=== PATIENT | female | born 1965 | race Caucasian/White ===

== ENCOUNTER 2017-05-20 08:06 | Emergency (ER) | payer MEDICARE ==
[2017-05-20 08:07] VITALS: BMI 35.2
[2017-05-20 08:25] VITALS: RESP 16; TEMP 98.7; O2SAT 98
--- NOTE | 2017-05-20 08:38 | ED PDOC ---
Arrival/HPI - General Chief Complaint: Trauma Time Seen by Provider: 05/20/17 08:26 Historian: Patient - History of Present Illness Narrative History of Present Illness (Text): 05/20/17 08:25 Skye Wilkerson is a 51 year old female, whose past medical history includes hypertension, who presents to the emergency department complaining of musculoskeletal pain s/p mechanical fall since yesterday. Patient reports she was shoveling snow when she fell and notes the pain is mainly on right hand, right ankle, left shoulder, and left knee. Patient did no hit her head or lose consciousness. Patient denies other complaints. Time/Duration: 24 hours Symptom Onset: Sudden Symptom Course: Unchanged Activities at Onset: Light Past Medical History - Provider Review Nursing Documentation Reviewed: Yes - Infectious Disease Hx of Infectious Diseases: None - Tetanus Immunization Tetanus Immunization: Unknown - Reproductive Menopause: Yes - Cardiac Hx Hypertension: Yes - Pulmonary Hx Respiratory Disorders: No - Neurological Hx Neurological Disorder: Yes Other/Comment: anxiety - HEENT Hx HEENT Disorder: Yes Other/Comment: wears glasses - Renal Hx Renal Disorder: No - Endocrine/Metabolic Hx Endocrine Disorders: No Hx Diabetes Mellitus Type 1: No Hx Diabetes Mellitus Type 2: No - Hematological/Oncological Hx Blood Disorders: No - Integumentary Hx Dermatological Disorder: No - Musculoskeletal/Rheumatological Hx Musculoskeletal Disorders: No Hx Falls: No - Gastrointestinal Hx Gastrointestinal Disorders: Yes Other/Comment: elevated liver enzymes - Genitourinary/Gynecological Hx Genitourinary Disorders: Yes Other/Comment: hysterectomy 2010 - Psychiatric Hx Psychophysiologic Disorder: Yes Hx Anxiety: Yes Hx Depression: Yes Hx Panic Disorder: Yes Hx Substance Use: No - Past Surgical History Past Surgical History: No Previous - Surgical History Hx Hysterectomy: Yes - Anesthesia Hx Anesthesia: Yes Hx Anesthesia Reactions: No Hx Malignant Hyperthermia: No - Suicidal Assessment Feels Threatened In Home Enviroment: No Family/Social History - Physician Review Nursing Documentation Reviewed: Yes Family/Social History: Unknown Family HX Smoking Status: Light Smoker < 10 Cigarettes Daily Hx Alcohol Use: No Hx Substance Use: No Hx Substance Use Treatment: No Allergies/Home Meds Allergies/Adverse Reactions: Allergies aspirin Allergy (Verified 05/20/17 08:25) RASH Penicillins Allergy (Verified 05/20/17 08:25) RASH Home Medications: Home Meds Medication Instructions Recorded Confirmed Atomoxetine HCl [Strattera] 80 mg PO DAILY 10/27/11 11/07/13 Benztropine [Cogentin] 1 mg PO HS 10/27/11 11/07/13 Calcium Carbonate/Vitamin D 1 tab PO DAILY 10/27/11 11/07/13 [Caltrate 600 + D 600 mg-200 Iu] Fenofibrate, Micronized 134 mg PO DAILY 10/27/11 11/07/13 [Fenofibrate Micronized] Nortriptyline Hydrochloride 75 mg PO DAILY 10/27/11 11/07/13 [Nortriptyline] Risperidone 4 mg PO HS 10/27/11 11/07/13 Zolpidem Tartrate [Ambien] 10 mg PO HS 10/27/11 11/07/13 Amlodipine/Valsartan [Exforge 1 tab PO HS 07/21/12 11/07/13 5-160 mg Tablet] Multivitamin and Minerals1 1 tab PO DAILY 07/21/12 11/07/13 [Centrum] Naproxen [Naproxen Delayed-Release] 500 mg PO HS 07/21/12 11/07/13 Lorazepam 1 mg PO TID 01/21/13 11/07/13 Review of Systems - Review of Systems Constitutional: absent: Fevers Respiratory: absent: SOB Cardiovascular: absent: Chest Pain Gastrointestinal: absent: Abdominal Pain, Vomiting Genitourinary Female: absent: Dysuria Musculoskeletal: Other (right hand, right ankle, left knee, left shoulder ) Neurological: absent: Headache Hemo/Lymphatic: absent: Easy Bruising Physical Exam Vital Signs Reviewed: Yes Vital Signs Temp Pulse Resp BP Pulse Ox 05/20/17 10:07 72 16 122/82 98 05/20/17 08:07 98.7 F 74 16 121/74 98 Temperature: Afebrile Blood Pressure: Normal Pulse: Regular Respiratory Rate: Normal Appearance: Positive for: Well-Appearing, Non-Toxic, Comfortable Pain Distress: None Mental Status: Positive for: Alert and Oriented X 3 - Systems Exam Head: Present: Atraumatic, Normocephalic Pupils: Present: PERRL Extroacular Muscles: Present: EOMI Conjunctiva: Present: Normal Respiratory/Chest: Present: Clear to Auscultation, Good Air Exchange. No: Respiratory Distress, Accessory Muscle Use Cardiovascular: Present: Regular Rate and Rhythm, Normal S1, S2. No: Murmurs Abdomen: Present: Normal Bowel Sounds. No: Tenderness, Distention, Peritoneal Signs, Rebound, Guarding Upper Extremity: Present: Normal Inspection, Normal ROM, NORMAL PULSES, Tenderness (mild tenderness on right hand, left shoulder ), Capillary Refill < 2s. No: Cyanosis, Edema, Deformity Lower Extremity: Present: Normal Inspection, NORMAL PULSES, Tenderness (mild tenderness on right ankle, left knee), Neurovascularly Intact, Capillary Refill < 2 s. No: Edema, Deformity Neurological: Present: GCS=15, CN II-XII Intact, Speech Normal Skin: Present: Warm, Dry, Normal Color. No: Rashes Psychiatric: Present: Alert, Oriented x 3, Normal Insight, Normal Concentration Medical Decision Making ED Course and Treatment: 05/20/17 10:00 Right Ankle x-ray: Creator : Morales Byrd MD FINDINGS: BONES: Normal. No fracture. JOINTS: Normal. No osteoarthritis. Ankle mortise maintained. Talar dome intact SOFT TISSUES: Normal. OTHER FINDINGS: None. IMPRESSION: No acute findings related to/accounting for the clinical presentation. 05/20/17 10:15 Right Hand x-ray: Creator : Ned Osullivan MD FINDINGS: BONES: Normal. No fracture. JOINTS: Normal. No osteoarthritic changes. SOFT TISSUES: Normal. OTHER FINDINGS: None. IMPRESSION: Normal right hand radiographs. 05/20/17 10:15 Left Knee x-ray: Creator : Ned Osullivan MD FINDINGS: BONES: Normal. No fracture. JOINTS: Normal. No osteoarthritis. JOINT EFFUSION: None. OTHER FINDINGS: None. IMPRESSION: Normal radiographs of the left knee. 05/20/17 10:20 Left shoulder x-ray: Creator : Ned Osullivan MD FINDINGS: BONES: Normal. No fracture. JOINTS: Normal. Glenohumeral and acromioclavicular joints preserved. No osteoarthritis. SOFT TISSUES: Normal. OTHER FINDINGS: None. IMPRESSION: Normal radiographs of the left shoulder. - RAD Interpretation Radiology Orders: 05/20/17 08:28 ANKLE RIGHT 3 VIEWS ROUTINE [RAD] Stat HAND RIGHT 3 VIEWS [RAD] Stat KNEE LEFT 2 VIEWS (AP & LAT) [RAD] Stat SHOULDER LEFT [RAD] Stat Act Tutor: Radiologist - Medication Orders Current Medication Orders: Discontinued Medications Acetaminophen (Tylenol 325mg Tab) 975 mg PO STAT STA Stop: 05/20/17 08:30 Last Admin: 05/20/17 08:30 Dose: 975 mg MAR Pain/Vitals Document 05/20/17 08:30 AD (Rec: 05/20/17 09:09 AD [id number]) Pain Reassessment Is This A Pain ReAssessment? No Presence of Pain Presence of Pain Yes Pain Scale Used Pain Scale Used Numeric Location Intensity 6 Scale Used Numeric - Scribe Statement The provider has reviewed the documentation as recorded by the Marylouibrajni Navarrete Provider Scribe Attestation: All medical record entries made by the Scribe were at my direction and personally dictated by me. I have reviewed the chart and agree that the record accurately reflects my personal performance of the history, physical exam, medical decision making, and the department course for this patient. I have also personally directed, reviewed, and agree with the discharge instructions and disposition. Disposition/Present on Arrival - Present on Arrival Any Indicators Present on Arrival: No History of DVT/PE: No History of Uncontrolled Diabetes: No Urinary Catheter: No History of Decub. Ulcer: No History Surgical Site Infection Following: None - Disposition Have Diagnosis and Disposition been Completed?: Yes Diagnosis: Shoulder strain, Ankle sprain, Hand sprain, Knee sprain Disposition: HOME/ ROUTINE Disposition Time: 10:00 Condition: STABLE Discharge Instructions (ExitCare): Ankle Sprain (ED), Knee Sprain (ED), Shoulder Sprain (ED), Hand Sprain (ED) Additional Instructions: see specialist. return to emergency room with worsening symptoms or concerns. Referrals: Germán Epstein MD [Primary Care Provider] - Follow up with primary Ned Caldwell DO [Staff Provider] - Follow up with primary Forms: [employer] (Turkish)
--- NOTE | 2017-05-20 09:55 | RAD ---
PROCEDURE: Right Ankle Radiographs. HISTORY: fall COMPARISON: None FINDINGS: BONES: Normal. No fracture. JOINTS: Normal. No osteoarthritis. Ankle mortise maintained. Talar dome intact SOFT TISSUES: Normal. OTHER FINDINGS: None. IMPRESSION: No acute findings related to/accounting for the clinical presentation.
--- NOTE | 2017-05-20 10:13 | RAD ---
PROCEDURE: Left Knee Radiographs. HISTORY: Pain. COMPARISON: None. FINDINGS: BONES: Normal. No fracture. JOINTS: Normal. No osteoarthritis. JOINT EFFUSION: None. OTHER FINDINGS: None. IMPRESSION: Normal radiographs of the left knee.
[2017-05-20 10:14] VITALS: BP 122/82; PULSE 72
--- NOTE | 2017-05-20 10:14 | RAD ---
PROCEDURE: Radiographs of the Left Shoulder HISTORY: fall COMPARISON: No prior. FINDINGS: BONES: Normal. No fracture. JOINTS: Normal. Glenohumeral and acromioclavicular joints preserved. No osteoarthritis. SOFT TISSUES: Normal. OTHER FINDINGS: None. IMPRESSION: Normal radiographs of the left shoulder.
--- NOTE | 2017-05-20 10:15 | RAD ---
PROCEDURE: Right Hand Radiographs. HISTORY: fall COMPARISON: None. FINDINGS: BONES: Normal. No fracture. JOINTS: Normal. No osteoarthritic changes. SOFT TISSUES: Normal. OTHER FINDINGS: None. IMPRESSION: Normal right hand radiographs.
== END 2017-05-20 10:15 | disposition home or self-care (01) ==
LOC: ED 08:06
DX: S46.912A Strain of unspecified muscle, fascia and tendon at shoulder and upper arm level, left arm, initial encounter (principal); S96.911A Strain of unspecified muscle and tendon at ankle and foot level, right foot, initial encounter; S66.911A Strain of unspecified muscle, fascia and tendon at wrist and hand level, right hand, initial encounter; S86.812A Strain of other muscle(s) and tendon(s) at lower leg level, left leg, initial encounter; W18.30XA Fall on same level, unspecified, initial encounter; Y93.H1 Activity, digging, shoveling and raking; I10 Essential (primary) hypertension; F17.210 Nicotine dependence, cigarettes, uncomplicated; Z88.0 Allergy status to penicillin

== ENCOUNTER 2017-08-27 10:07 | Emergency (ER) | payer MEDICARE ==
[2017-08-27 10:07] VITALS: BMI 35.2
[2017-08-27 10:23] VITALS: TEMP 98.3
--- NOTE | 2017-08-27 10:37 | ED PDOC ---
Arrival/HPI - General Chief Complaint: Abdominal Pain Time Seen by Provider: 08/27/17 10:29 Historian: Patient - History of Present Illness Narrative History of Present Illness (Text): 08/27/17 10:30 51yo female with PMHx of hypertension and HCL who present with complaint of RLQ abdominal pain x few days. She denies any current pain. States she came in because she is worried about appendicitis. She denies nausea, vomiting, diarrhea , constipation, fever, chills, urinary symptoms, chest pain, SOB, dizziness, any other complaint. Past Medical History - Provider Review Nursing Documentation Reviewed: Yes - Infectious Disease Hx of Infectious Diseases: None - Tetanus Immunization Tetanus Immunization: Unknown - Reproductive Menopause: Yes - Cardiac Hx Hypertension: Yes - Pulmonary Hx Respiratory Disorders: No - Neurological Hx Neurological Disorder: Yes Other/Comment: anxiety - HEENT Hx HEENT Disorder: Yes Other/Comment: wears glasses - Renal Hx Renal Disorder: No - Endocrine/Metabolic Hx Endocrine Disorders: No Hx Diabetes Mellitus Type 1: No Hx Diabetes Mellitus Type 2: No - Hematological/Oncological Hx Blood Disorders: No - Integumentary Hx Dermatological Disorder: No - Musculoskeletal/Rheumatological Hx Musculoskeletal Disorders: No Hx Falls: No - Gastrointestinal Hx Gastrointestinal Disorders: Yes Other/Comment: elevated liver enzymes - Genitourinary/Gynecological Hx Genitourinary Disorders: Yes Other/Comment: hysterectomy 2009 - Psychiatric Hx Psychophysiologic Disorder: Yes Hx Anxiety: Yes Hx Depression: Yes Hx Panic Disorder: Yes Hx Substance Use: No - Past Surgical History Past Surgical History: No Previous - Surgical History Hx Hysterectomy: Yes - Anesthesia Hx Anesthesia: Yes Hx Anesthesia Reactions: No Hx Malignant Hyperthermia: No - Suicidal Assessment Feels Threatened In Home Enviroment: No Family/Social History - Physician Review Nursing Documentation Reviewed: Yes Family/Social History: Unknown Family HX Smoking Status: Light Smoker < 10 Cigarettes Daily Hx Alcohol Use: No Hx Substance Use: No Hx Substance Use Treatment: No Allergies/Home Meds Allergies/Adverse Reactions: Allergies aspirin Allergy (Verified 08/27/17 10:23) RASH Penicillins Allergy (Verified 08/27/17 10:23) RASH Home Medications: Home Meds Medication Instructions Recorded Confirmed Benztropine [Cogentin] 1 mg PO HS 10/27/11 08/27/17 Amlodipine/Valsartan [Exforge 1 tab PO HS 07/21/12 08/27/17 5-160 mg Tablet] Amitriptyline [Elavil] 75 mg PO DAILY 08/27/17 08/27/17 Fenofibrate,Micronized 134 mg PO DAILY 08/27/17 08/27/17 [Fenofibrate] Zolpidem [Ambien] 10 mg PO HS 08/27/17 08/27/17 risperiDONE [RisperDAL] 4 mg PO HS 08/27/17 08/27/17 Review of Systems - Physician Review All systems were reviewed & negative as marked: Yes - Review of Systems Constitutional: Normal Eyes: Normal ENT: Normal Respiratory: Normal Cardiovascular: Normal Gastrointestinal: Abdominal Pain. absent: Constipation, Diarrhea, Nausea, Vomiting, Hematochezia, Hematemesis Genitourinary Female: Normal Musculoskeletal: Normal Skin: Normal Neurological: Normal Endocrine: Normal Hemo/Lymphatic: Normal Psychiatric: Normal Physical Exam Vital Signs Reviewed: Yes Vital Signs Temp Pulse Resp BP Pulse Ox 08/27/17 12:03 89 16 116/72 96 08/27/17 11:34 89 19 115/67 95 08/27/17 10:20 98.3 F 95 H 18 123/75 98 Temperature: Afebrile Blood Pressure: Normal Pulse: Regular Respiratory Rate: Normal Appearance: Positive for: Well-Appearing, Non-Toxic, Comfortable Pain Distress: None Mental Status: Positive for: Alert and Oriented X 3 - Systems Exam Head: Present: Atraumatic, Normocephalic Pupils: Present: PERRL Extroacular Muscles: Present: EOMI Conjunctiva: Present: Normal Mouth: Present: Moist Mucous Membranes Neck: Present: Normal Range of Motion Respiratory/Chest: Present: Clear to Auscultation, Good Air Exchange. No: Respiratory Distress, Accessory Muscle Use Cardiovascular: Present: Regular Rate and Rhythm, Normal S1, S2. No: Murmurs Abdomen: Present: Normal Bowel Sounds, Other (Soft). No: Tenderness, Distention , Peritoneal Signs, Rebound, Guarding, McBurney's Point Tender, Rovsing's Sign Present Back: Present: Normal Inspection Upper Extremity: Present: Normal Inspection. No: Cyanosis, Edema Lower Extremity: Present: Normal Inspection. No: Edema Neurological: Present: GCS=15, CN II-XII Intact, Speech Normal Skin: Present: Warm, Dry, Normal Color. No: Rashes Psychiatric: Present: Alert, Oriented x 3, Normal Insight, Normal Concentration Medical Decision Making ED Course and Treatment: 08/27/17 18:42 PT presented for stated history. She was not in any distress. Her PE was benign. Abdominal/Plevic CT IMPRESSION: Multiple 10 liver cystic appearing masses the largest in the right hepatic lobe at the dome as detailed above. Follow-up recommended Status post hysterectomy. No adnexal masses. Unremarkable appearing appendix. No bowel obstruction. No diverticulitis. Trace free fluid in the pelvis probably physiologic Pt's pain was not close to her live. result was DW the pt. she was given a copy of the CT report and advised to f/u with her PMD for re evaluation of CT finding. - RAD Interpretation Radiology Orders: 08/27/17 10:38 ABD & PELVIS W/O PO OR IV CONT [CT] Stat Disposition/Present on Arrival - Present on Arrival Any Indicators Present on Arrival: No History of DVT/PE: No History of Uncontrolled Diabetes: No Urinary Catheter: No History of Decub. Ulcer: No History Surgical Site Infection Following: None - Disposition Have Diagnosis and Disposition been Completed?: Yes Diagnosis: Abdominal pain, Liver cyst Disposition: HOME/ ROUTINE Disposition Time: 11:45 Patient Plan: Discharge Condition: STABLE Discharge Instructions (ExitCare): Acute Abdomen (Belly Pain), Adult (DC) Additional Instructions: follow up with your doctor/GI Return to ED for any new or worsening symptoms Referrals: Germán Epstein MD [Primary Care Provider] - Follow up with primary Gildardo Ramirez MD [Staff Provider] - Follow up with primary Forms: [employer] (Czech)
--- NOTE | 2017-08-27 11:25 | CT ---
PROCEDURE: CT Abdomen and Pelvis without intravenous contrast HISTORY: RLQ abdominal pain. History of hysterectomy COMPARISON: None. TECHNIQUE: Without IV contrast. Contrast Dose: None Radiation dose: Total exam DLP = 558 mGy-cm. This CT exam was performed using one or more of the following dose reduction techniques: Automated exposure control, adjustment of the mA and/or kV according to patient size, and/or use of iterative reconstruction technique. FINDINGS: LOWER THORAX: Unremarkable. LIVER: Multiple 10 left and right hepatic lobe hypodense cystic appearing lesions are present. These resemble liver cysts the largest at the hepatic dome right hepatic lobe measures up to 2.8 cm. Other cystic masses not excluded No intrahepatic bile duct dilatation. GALLBLADDER AND BILE DUCTS: Unremarkable. PANCREAS: Unremarkable. No gross lesion or ductal dilatation. SPLEEN: Unremarkable. ADRENALS: Unremarkable. No mass. KIDNEYS AND URETERS: Unremarkable. No hydronephrosis. No solid mass. VASCULATURE: Unremarkable. No aortic aneurysm. BOWEL: Unremarkable. No obstruction. No gross mural thickening. APPENDIX: Unremarkable. Normal appendix. PERITONEUM: . Trace free fluid probably physiologic present No free air. LYMPH NODES: Unremarkable. No enlarged lymph nodes. BLADDER: Unremarkable. REPRODUCTIVE: No normal appearing uterus seen. No adnexal masses. BONES: No lytic lesions. Facet lumbar arthrosis noted. OTHER FINDINGS: None. IMPRESSION: Multiple 10 liver cystic appearing masses the largest in the right hepatic lobe at the dome as detailed above. Follow-up recommended Status post hysterectomy. No adnexal masses. Unremarkable appearing appendix. No bowel obstruction. No diverticulitis. Trace free fluid in the pelvis probably physiologic
[2017-08-27 11:35] VITALS: PULSE 89
[2017-08-27 12:05] VITALS: BP 116/72; RESP 16; O2SAT 96
== END 2017-08-27 12:03 | disposition home or self-care (01) ==
LOC: ED 10:07
DX: K76.89 Other specified diseases of liver (principal); R10.31 Right lower quadrant pain; I10 Essential (primary) hypertension